=== PATIENT | female | born 1950 | race Caucasian/White ===

== ENCOUNTER 2017-11-20 06:20 | Day surgery (SDC) | payer OTHER ==
[2017-11-17 13:14] LABS: Absolute Lymphocytes (CBC) 1.3 K/uL (0.7-4.9); Absolute Monocytes 0.5 K/uL (0.1-1.3); Absolute Neutrophil 4.1 K/uL (1.8-8.0); Basophils % 0.6 % (0-1.3); Eosinophils % 3.3 % (0-4.4); Hematocrit 45.7 % (36.0-45.0); Lymphocytes % 20.9 % (15.3-44.8); MCH 31.4 pg (27.0-35.0); MCV 93.9 fL (80-100); MPV 9.4 fL (7.6-11.3); Monocytes % 8.7 % (3.3-12.3); RBC Red Blood Cell Count 4.87 M/uL (3.86-4.86)
[2017-11-17 13:21] LABS: BUN Blood Urea Nitrogen 12 mg/dL (6-20); Bicarbonate 28 mEq/L (21-31); Glucose Level 93 mg/dL (65-120); Potassium 4.1 mEq/L (3.6-5.0); Sodium Level 139 mEq/L (135-145)
[2017-11-20] MEDS ORDERED: SCOPOLAMINE HYDROBROMIDE PATCH TD ONE (06:44)
[2017-11-20] MEDS ORDERED: Ringers Lactate 1,000 ML IV ONE ×3 (06:44→19:54)
[2017-11-20] MEDS ORDERED: CEFAZOLIN/SWI 1gm 1 GM/10 ML SYR ONE (06:44)
[2017-11-20] MEDS ORDERED: ROCURONIUM 50 MG/5 ML VIAL IV ONE ×3 (06:44→11:16)
[2017-11-20] MEDS ORDERED: PROPOFOL 200 MG/20 ML VIAL IV ONE (06:44)
[2017-11-20] MEDS ORDERED: DEXAMETHASONE 10 MG/ML VIAL ONE (06:45)
[2017-11-20] MEDS ORDERED: LIDOCAINE 2% MPF 5 ML VIAL ONE (06:45)
[2017-11-20] MEDS ORDERED: FENTANYL CITR 250 MCG/5 ML ONE (06:46)
[2017-11-20] MEDS ORDERED: ONDANSETRON 4 MG/2 ML VIAL ONE ×2 (06:46→07:50)
[2017-11-20] MEDS ORDERED: MIDAZOLAM HCL 2 MG/2 ML INJ ONE (06:46)
[2017-11-20] MEDS ORDERED: VASOPRESSIN 20 UNIT/ML VIAL ONE (06:53)
[2017-11-20] MEDS ORDERED: NA CHLORIDE 0.9% 0 ML IV ONE (06:53)
[2017-11-20] MEDS: CEFAZOLIN/SWI 1gm 1 GM/10 ML SYR ONE ×2 (07:16→08:33)
[2017-11-20] MEDS ORDERED: EPHEDRINE SULF 50 MG/5 ML SYR ONE (07:43)
[2017-11-20] MEDS ORDERED: GLYCOPYRROLATE 0.2 MG/ML SYR ONE (07:49)
[2017-11-20] MEDS ORDERED: NEOSTIGMINE 1 MG/ML -5 ML SYRINGE ONE (07:50)
[2017-11-20] MEDS ORDERED: MORPHINE 10 MG/ML VIAL ONE (07:57)
[2017-11-20] MEDS ORDERED: CEFAZOLIN SODIUM 1 GM/VIAL ONE (09:56)
[2017-11-20] MEDS ORDERED: FENTANYL CITR 100 MCG/2 ML ONE ×2 (10:11→11:11)
[2017-11-20] MEDS: Ringers Lactate 1,000 ML IV ONE ×2 (11:00→11:02)
[2017-11-20] MEDS ORDERED: NA CHLORIDE 0.9% 50 ML ONE (11:09)
[2017-11-20] MEDS: VASOPRESSIN 20 UNIT/ML VIAL ONE ×2 (11:17→11:46)
[2017-11-20] MEDS ORDERED: KETOROLAC 30 MG/ML INJ ONE (11:46)
[2017-11-20] MEDS ORDERED: PROMETHAZINE 25 MG TABLET PO PRN (13:27)
[2017-11-20] MEDS ORDERED: HYDROMORPHONE HCL 1 MG/ML INJ IV PRN (13:27)
[2017-11-20] MEDS ORDERED: ONDANSETRON 4 MG/2 ML VIAL IV PRN (13:27)
[2017-11-20 13:57] VITALS: O2SAT 94
[2017-11-20] MEDS ORDERED: MORPHINE 4 MG/ML SYR IV PRN (14:47)
[2017-11-20 15:07] VITALS: BMI 25.0
[2017-11-20] MEDS: HYDROCODONE/APAP 5/325 MG TAB PO PRN ×2 (17:18→22:57)
[2017-11-20] MEDS: Ringers Lactate 1,000 ML IV SCH (22:10)
[2017-11-20] MEDS ORDERED: HYDROCODONE/APAP 5/325 MG TAB ONE (22:54)
[2017-11-21] MEDS ORDERED: HYDROCODONE/APAP 5/325 MG TAB ONE ×2 (05:04→12:43)
[2017-11-21] MEDS: HYDROCODONE/APAP 5/325 MG TAB PO PRN ×2 (05:09→13:00)
[2017-11-21] MEDS ORDERED: Ringers Lactate 1,000 ML IV ONE (05:15)
[2017-11-21] MEDS: Ringers Lactate 1,000 ML IV SCH (05:17)
[2017-11-21 06:20] LABS: Absolute Lymphocytes (CBC) 1.6 K/uL (0.7-4.9); Basophils % 0.3 % (0-1.3); Eosinophils % 0.5 % (0-4.4); Hematocrit 40.4 % (36.0-45.0); Lymphocytes % 15.3 % (15.3-44.8); MCH 31.8 pg (27.0-35.0); MCV 94.2 fL (80-100); MPV 8.9 fL (7.6-11.3); Monocytes % 8.9 % (3.3-12.3)
--- NOTE | 2017-11-21 08:43 | OP ---
Date of Procedure: 11/20/2017 Surgeon: Meredith Chirinos MD Preoperative Diagnoses: Stage III anterior wall prolapse and stage II posterior wall prolapse, occul t stress urinary incontinence, and urethrocele. Postoperative Diagnoses: Stage III anterior wall prolapse and stage II posterior wall prolapse, occu lt stress urinary incontinence, and urethrocele. Procedures Performed: 1.Laparoscopic sacral colpopexy. 2.Rectocele repair and perineorrhaphy. 3.Midurethral sling TVT-O and cystoscopy. Cystocele repair was performed along with the sacral colp opexy laparoscopically. The patient also had urethrocele, so urethrocele repair was done. 4.Extensive lysis of bowel adhesions. Anesthesia: General. Estimated Blood Loss: 100. Specimens: None. Complications: None. Drains: Hughes catheter and vaginal packing. Findings: Extensive bowel adhesions of the sigmoid colon and cecum to the entire pelvic area and the se had to be taken down. Her POP-Q was as follows; 0, +2, -2, 4-5 cm thin, 7 cm for vaginal length. AP was 0, BP was +1, and point D nonapplicable. The patient also had paravaginal defects, however, the anterior wall bulge and the apex in the posterior wall were main important defects. Description Of Procedure: After informed consent was verified, a gram of Ancef was given. She was t aken back to the OR, placed in a supine fashion on the operating table. After general anesthesia was given, she was placed in dorsal lithotomy position. Pelvic exam was performed and POP-Q as above. Entire abdomen, vulva, vagina, and perineum were prepped and draped in a sterile fashion both for the abdominal and vaginal setup. Hughes was placed to drain the bladder. Cysto tubing was used to connect the bladder to retrograde fi ll, but this was left to drain on the floor first. A colpo assist device was placed into the vagina for vaginal retraction and this area was draped. A 1 cm infraumbilical incision was made with a scalpel. The fascia was incised, tagged with 0 Vicryl sutures. Peritoneal cavity was entered. S retractors were placed. Alondra trocar was introduced. The tags were tacked down to the Alondra. Site of entry was checked and unremarkable. There were ome ntal adhesions to the right upper quadrant. The liver appeared to be unremarkable other than age-rel ated changes. The patient was placed in Trendelenburg position. A 5 mm left lower quadrant, 10 mm s uprapubic, and 5 mm right lower quadrant ports were placed under direct vision. On visualization of the pelvic cavity, the patient in Trendelenburg, there were significant adhesions of the large bowel to the left lateral wall and the cul-de-sac, both sides, right lateral wall and right lower quadrant where the cecum was. In the first 30 minutes of the procedure, the adhesions were taken down with sharp dissection with sc issors. Systematically with push-spread technique and traction-countertraction, these were taken casey n all the way dissecting from the left adnexal area all the way down to the pelvis. Then, in a simil ar fashion, they were taken down from the right posterior lateral wall in the cul-de-sac in a sharp f ashion as well as with cold scissors. Then, I went down to the right . Here once the all this was freed up, the colon was freed up. However, the cecum was falling into the field where the s acral promontory was, so I had to take down the cecal adhesions. The cecal adhesions were also taken down in a systematic fashion by creating windows and then taken d own sharply. After all these were done, the cecum was retracted superiorly. The base of the small i ntestinal mesentery was turned superiorly and tucked down to the omentum for good retraction. The pa tient was placed in a steep Trendelenburg . Promontory was identified. Then anterior and posterior vaginal taylor were examined closely. The bladder was identified. I started with incision at the level of the bladder proximal to it and the vaginal cuff opening in the peritoneum. Once this was done, the entire vesicovaginal space access was opened up by the scissors. The incis ion was performed towards the right end of the and to the left end. Once the transverse i ncision was made, then went down to dissect the bladder superiorly. There was a small area that was bleeding, which was likely the detrusor muscle. This was cauterized with the help of the bipolar tip . Then, the bladder was held retracting superiorly and the entire bladder was dissected away from th e anterior vaginal wall. Once the dissection was performed all the way down to about 4 cm from the l evel of the cuff, calculation for total 7 cm cuff. If the trigone took about a centimeter and a half and 3 cm for the urethra, then we would be left with 3.5 cm vaginal wall. So, once this was achieved anteriorly with push-spread technique, all the bladder adhesions were taken down and the anterior vaginal wall was exposed. Then, went down posteriorly. The large part of the peritoneum w as left on the posterior cuff and at the reflection of the rectum, the posterior vaginal wall retract ion was done. Then, this space was opened up transversely by opening the peritoneum and dissecting t he rectum down here in the space, vaginal wall, but cut right on the fat so that there was no bleeding. Once this was done laterally on both sides, the dissection was carried to about 2 cm c ephalad to the perineal body. Once I came down here, then I was able to open the incision widely as well as from [id number] to create enough space to lay down the mesh. The Y mesh was then taken, 9.5 cm were trimmed posteriorly. Then, 9 cm were trimmed and 9.5 cm were trimmed posteriorly and the Y mesh was sutured in such a way that the posterior flap was held by itse lf. Anterior flap was folded on the sacral suspension flap and stitched with a 2-0 PDS with the nora e knot. Then, a V-Loc suture was placed in the middle of the posterior arm of the graft distally. O nce this was passed through here, then I came on to bring the suture through the suprapubic port and this was placed in the center of the distal part of the posterior vaginal wall with the distal most p art of the dissection. Once 2 bites were taken into the vaginal wall in a pretty thick fashion, then the graft was pulled through the suprapubic port with the posterior arm coming in first. Then, the entire mesh was pulled in and was laid flat going from the sacrum all the way down to the distal post erior vaginal wall and the suture was pulled tightly and snugly and the tails cut. Then, after this was done, I placed two 2-0 PDS sutures on each side laterally in the distal part to attach the graft to the rectovaginal septum. One bite was taken with Prolene on each side deep enough, but not too de ep to expose into the vaginal mucosa. The sutures were then tied down with 8 knot and tails cut very snug. Then, came on to tension the sacral part of the mesh. Prior to this was being done, I opened up the sacral promontory by holding tension on the peritoneum above it after identifying the bifurcation in the ureter. Incision was made with a harmonic scalpel and this incision was carried down laterally towards the uterosacral and stayed medial to the uterosa cral to open into peritoneum and connected with a transverse posterior incision. Once this was done, the fat was also dissected to create enough space to lay down the graft staying away from the presac ral nerves. The middle sacral veins were very minimal and did not seem to be concerning, so they did not need to be cauterized. Once the sacrum was identified, both tips of the retracting instruments were placed o n either sides without injuring the vessels . Then with the help of the Protac, I was able to secure 3 bites onto the sacral promontory, then flipped the mesh back on itself and 3 more tacks were placed. After this was securely tacked, the excess of mesh was trimmed off. Anterior vaginal wall was then sutured with the graft. The graft was flipped after cutting the retai francoise suture. The V-Loc suture was placed in the midline distal vaginal wall. Two 2 bites were taken through the graft and through the vaginal mucosa to hold it nicely down. Then, 2-0 Prolene sutures were placed on each side to go through the precervical fascia. Once the sutures were securely placed to tack down the mesh, then 2 more V-Locs were placed 1 on each side and not close to the Y part of the mesh, but laterally to securely lay down the graft and prevent it from rolling. There was at teena st a centimeter space between the apex of the vaginal wall and the Y mesh. The Y mesh was then retro peritonealized starting with the V-Loc suture at the top near the sacral promontory. The knot of the V-Loc was securely placed inside the peritoneum, so it was retroperitonealized. Then, in a continuo us running fashion the cephalad longer incision was closed and the transverse right half of the incis ion was closed along with the same suture and a new suture was taken and this was used to close the r est of the left half of the transverse incision. Once all these were brought together, the entire me sh was retroperitonealized without too much bunching up. The trocars were all removed after cutting the suture that was placed to hold the epiploica of the co brian using the Gigi-Emory needle that was retrieved. The sutures were retrieved before the start of the case. The same suture was released, the 2-0 PDS and there was no bleeding at the site. The suction irrigation was performed. Pictures were taken. No evidence of any injury to the ureter or t he vessels of the bowel. All trocars were removed under direct vision. A 0 PDS was used to close the fascia at the umbilicus and 0 Vicryl at the suprapubic incision. All incisions were closed with the help of yadi. On examination, there was an excellent lift of the vaginal apex to at least -8. An anterior wall was also well reduced. There was a small urethrocele. However, there were small paravaginal defects; h owever, these did not appear to need any repair. This exam was performed and satisfaction was ensure d even prior to closing the laparoscopic ports. The distal rectocele and perineal body had to be reconstructed, so this Procedure was done next. Two Allis clamps were placed on either sides of the vestibule and injection with the vasopressin in t he perineum and in the posterior vaginal wall and to the level below the distal suture of the graft. Then, a triangular skin incision was made on the perineum. Then, midline vertical incision was made , extended 2 cm of the distal vaginal wall. Then, the rectocele was dissected, vaginal mucosa was pi cked up, and the distal defect was very mild, mostly with the perineocele. So, the vaginal mucosa wa s trimmed. This was closed with the help of 2-0 Vicryl in a continuous running fashion. Once I came down to the perineal body, this was very weak, so I went on to reconstruct the perineal body by chana ging together the transverse perinei. Rectovaginal exam was performed. Three interrupted 2-0 Vicryl sutures were placed to bring this back and reconstruct it. Once this was done, then the 2-0 Vicryl was continued and the vaginal mucosa was closed inside the hymen. Then, a 3-0 Vicryl suture was take n and subcutaneous closure was done on the perineum and subcuticular closure and the suture tied insi de the hymenal ring. Rectal exam was performed. No evidence of any trauma or foreign body in the re ctum. Mid urethral area was visualized. Dilute vasopressin was injected by placing Allis on the lateral wa ll on the lateral aspect of the mid urethra. With a 15-blade, the lateral incisions were made to red uce the urethrocele and flaps were created on each side that were thick. Then, I went down to do the dissection for the sling. There was some difficulty getting into the obturator space. Once this wa s entered, the tracks were created on both sides. The wing guides were placed. The spikes were pass ed in the usual fashion. The exit points were somewhat inferior to the marked point. However, this was satisfactory placement of both arms. So, the sling was left in place. I dissected the urethroce le proximally as well to the level of the bladder neck. There was difficulty getting any good fascia here. The lateral sutures were taken to bring the proximal part of the urethrocele closed with the help of interrupted 3-0 Vicryl sutures. Then, the sling was laid on top of it. Then, the vaginal ep ithelium was closed with the help of a continuous running 3-0 Vicryl suture. The skin incisions were closed with the help of Dermabond. The Hughes was removed. Cystoscopy and urethroscopy were perform ed. No evidence of any trauma or foreign body here. Both ureteric orifices were patent and there we re strong jets of urine probably from both ureteric orifices. No evidence of any tumors. The scope was removed. On ureteroscopy, no evidence of any trauma or foreign body. The bladder was drained. Hughes was replaced. Vaginal packing was placed. The patient was recovered from anesthesia. Instrum ent, needle, and sponge counts x3 were correct at the end of the case. The patient tolerated the pro cedure well. Her EBL was as dictated above. Urine output was adequate. Dr. was preceptor and was present in the room for the entire case. REZA Voice ID: [id number] Report ID: [id number]
[2017-11-21] MEDS ORDERED: DOCUSATE NA 100 MG CAP PO SCH (09:00)
[2017-11-21 12:13] VITALS: BP 138/52; TEMP 98.5
== END 2017-11-21 13:15 | disposition home or self-care (01) ==
LOC: OR 06:20 → 2ND-WC 13:45 → UNDOADMOB 14:00 → 2ND-WC 14:00 → OR 11-21 13:15
PROVIDERS: ATTEND Obstetrics & Gynecology
PROC: 0WQNXZZ Repair Female Perineum, External Approach (ICD-10-PCS; 2017-11-20)
PROC: 0USG4ZZ Reposition Vagina, Percutaneous Endoscopic Approach (ICD-10-PCS; 2017-11-20)
PROC: 0TSD0ZZ Reposition Urethra, Open Approach (ICD-10-PCS; 2017-11-20)
PROC: 0JUC0JZ Supplement of Pelvic Region Subcutaneous Tissue and Fascia with Synthetic Substitute, Open Approach (ICD-10-PCS; 2017-11-20)
PROC: 0JQC0ZZ Repair Pelvic Region Subcutaneous Tissue and Fascia, Open Approach (ICD-10-PCS; principal; 2017-11-20 07:30)
DX: N99.3 Prolapse of vaginal vault after hysterectomy (principal); N39.3 Stress incontinence (female) (male); N73.6 Female pelvic peritoneal adhesions (postinfective); I10 Essential (primary) hypertension; E78.5 Hyperlipidemia, unspecified; M85.80 Other specified disorders of bone density and structure, unspecified site; Z80.3 Family history of malignant neoplasm of breast
CPT/HCPCS: 36415; 80048; 85025; 86850; 86900; 86901; J0690; J1100; J1170; J2250; J2405; J2710; J3010

== ENCOUNTER 2017-12-15 10:00 | Day surgery (SDC) | payer OTHER ==
--- NOTE | 2017-12-11 11:00 | EKG ---
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
[2017-12-11 11:19] LABS: Absolute Lymphocytes (CBC) 1.4 K/uL (0.7-4.9); Absolute Monocytes 0.6 K/uL (0.1-1.3); Absolute Neutrophil 3.3 K/uL (1.8-8.0); Basophils % 0.8 % (0-1.3); Eosinophils % 5.7 % (0-4.4); Hematocrit 42.5 % (36.0-45.0); Lymphocytes % 24.2 % (15.3-44.8); MCH 31.7 pg (27.0-35.0); MCV 96.4 fL (80-100); Monocytes % 10.6 % (3.3-12.3); RBC Red Blood Cell Count 4.41 M/uL (3.86-4.86)
[2017-12-15] MEDS ORDERED: Ringers Lactate 1,000 ML IV ONE (10:23)
[2017-12-15] MEDS: CEFAZOLIN/SWI 1gm 1 GM/10 ML SYR ONE ×2 (10:50→11:02)
[2017-12-15] MEDS ORDERED: MIDAZOLAM HCL 2 MG/2 ML INJ ONE (10:59)
[2017-12-15] MEDS ORDERED: PROPOFOL 200 MG/20 ML VIAL IV ONE (11:06)
[2017-12-15] MEDS ORDERED: FENTANYL CITR 100 MCG/2 ML ONE (11:07)
[2017-12-15] MEDS ORDERED: LIDOCAINE 2% MPF 5 ML VIAL ONE (11:07)
[2017-12-15] MEDS ORDERED: ONDANSETRON 4 MG/2 ML VIAL ONE (11:12)
--- NOTE | 2017-12-15 11:42 | P.BOP ---
Preoperative diagnosis: hyperpimentated ulcerated arm subq masses Postoperative diagnosis: inflammed suq masses Primary procedure: 1. Excisional of medial arm hyperpigm. infected ulcerated subq mass 2x2 cm Secondary procedure: 2. Excisional of lateral arm hyperpigm infected ulcerated subq mass 2x2cm Estimated blood loss: <5cc Specimen: masses Findings: inflammed infected subq cyst x 2 Anesthesia: General Complications: None Drain(s): Other Transferred to: Recovery Room Condition: Good
[2017-12-15 12:41] VITALS: BP 138/84; TEMP 97.8; O2SAT 99
[2017-12-15] MEDS ORDERED: CODEINE 30MG/APAP 300MG TAB ONE (12:49)
--- NOTE | 2017-12-15 22:05 | OP ---
Date of Procedure: 12/15/2017 Surgeon: Anastacio Burns MD Preoperative Diagnosis: Hyperpigmented ulcerated arm subcutaneous masses. Postoperative Diagnoses: Hyperpigmented ulcerated arm subcutaneous masses plus inflamed subcutaneous masses. Procedures: 1.Excisional biopsy of medial arm hyperpigmented infected ulcerated subcutaneous mass 2 x 2 cm with frozen section. 2.Excisional biopsy of lateral arm hyperpigmented infected ulcerated subcutaneous mass 2 x 2 cm. Estimated Blood Loss: Less than 5 cc. Specimen: Masses. Finding: Inflamed and infected subcutaneous masses probably cyst. Anesthesia: General plus local. Indications: This is the case of a 67-year-old patient, who comes to us with 2 masses in the left ar m increasing in size, getting it red with ulceration. She does not remember having that before. She tried antibiotics, did not work. She is getting worse and is going deep, and with anesthesia she wa nts that excised. Possibility of skin cancer is there, so she wants that excised. The benefits, alt ernatives, and risks of excision were fully explained, which include but are not limited to infection , bleeding, damage to adjacent structures, anesthesia complication, recurrence, [place], and even . She also understands this may not relieve any symptoms. She might need more than one surgical interv ention. She also understood and signed a consent. The area of concern was marked by me and the griselda ent in the holding room. Description Of Procedure: The patient was brought to the operating room and placed in the supine pos ition. Anesthesia was given without complication. Left arm was prepped and draped in a sterile fash ion. A time-out was called. We proceeded to the medial side first which is the one that just giving her most of the trouble and that is why we are doing the frozen section. So, we did a wedge excisio n in the skin all the way down to fat full thickness of the skin all the way down to fat. Muscle is not involved. The lesion was sent to the pathologist, who confirmed this to be a mass subcutaneous. There is a what looked like is an infected cyst. Area was profusely irrigated. Hemostasis was obta ined. The patient wants this close if possible. 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 In the meantime, we will do so and will watch her for the next few days. So, we close the area with subcutaneous fashion and 3-0 chromic and then after that the skin with a 3-0 nylo n interrupted multiple times. We remove also the lateral side mass as per patient request with once again using same technique, which is sharp incision of the skin in a wedge fashion. The mass was rem pascale all the way down to fatty tissue. The area was irrigated. Hemostasis was obtained. Then, the area was closed with 3-0 chromic in the subcutaneous tissue and 3-0 nylon on the skin multiple times. The patient tolerated each procedure well. Irrigation was done before closure also hemostasis. The patient was sent to recovery in stable condition. Disposition: Home. Activity: As tolerated. No heavy lifting. Followup: She will follow up in my office in 1 week. Call for appointment on [phone]. The patient has previous antibiotics Bactrim, but did not work for her, so at this time, we are going to go to [facility] and then also we are going to use Tylenol No. 3 for pain and Bactroban for local topical fawn lication. She understood. MIREYA/GILBERTO Voice ID: [id number] Report ID: [id number]
== END 2017-12-15 13:10 | disposition home or self-care (01) ==
LOC: OR 10:00
PROVIDERS: ATTEND Surgery
PROC: 0JBH0ZZ Excision of Left Lower Arm Subcutaneous Tissue and Fascia, Open Approach (ICD-10-PCS; 2017-12-15)
PROC: 0JBH0ZZ Excision of Left Lower Arm Subcutaneous Tissue and Fascia, Open Approach (ICD-10-PCS; principal; 2017-12-15 11:00)
DX: R22.32 Localized swelling, mass and lump, left upper limb (principal); L72.0 Epidermal cyst; Z85.828 Personal history of other malignant neoplasm of skin; Z91.018 Allergy to other foods; Z80.8 Family history of malignant neoplasm of other organs or systems
CPT/HCPCS: 36415; 71046; 80048; 85025; 88304; 88305; 88312; 88331; 88332; 93005; J0690; J2250; J2405; J3010

== ENCOUNTER 2019-12-27 10:24 | Emergency (ER) | payer OTHER ==
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
--- NOTE | 2019-12-27 12:17 | RAD REPORT ---
EXAM DESCRIPTION: Ribs Right - 12/27/2019 11:26 am CLINICAL HISTORY: PAIN COMPARISON: Chest Pa And Lat (2 Views) dated 12/27/2019 FINDINGS: Nondisplaced lateral sixth and seventh rib fractures are noted. There is questionable frac ture of the eighth rib as well. No pathologic component. No aggressive rib lesion. There is no pneumothorax. Lung base atelectasis present. Patient may have m inimal pleural fluid. IMPRESSION: Nondisplaced fractures of the lateral right sixth and seventh ribs with probable fractur e of the eighth rib. Lung base atelectasis with no pneumothorax.
--- NOTE | 2019-12-27 12:56 | ER ---
Nurse's Notes [facility] Name: Monica Mclean Age: 69 yrs Sex: Female : 1950 Arrival Date: 12/27/2019 Time: 10:27 Bed 17 Private MD: Justine Luna Diagnosis: Multiple fractures of ribs, right side Presentation: 12/26 10:38 Chief complaint: Patient states: L sided rib pain that began yesterday after attempting ss to jump over an electric fence. Coronavirus screen: Proceed with normal triage. Patient denies a cough. Patient denies shortness of breath or difficulty breathing. Patient denies measured and/or subjective temperature greater than 100.4F prior to today's visit. Patient denies travel on a cruise ship or to a country the [facility] currently lists as an affected area. Patient denies contact with known and/or suspected case of COVID-19. Ebola Screen: Patient denies exposure to infectious person. Patient denies travel to an Ebola-affected area in the 21 days before illness onset. Initial Sepsis Screen: Does the patient meet any 2 criteria? No. Patient's initial sepsis screen is negative. Does the patient have a suspected source of infection? No. Patient's initial sepsis screen is negative. Risk Assessment: Do you want to hurt yourself or someone else? Patient reports no desire to harm self or others. Onset of symptoms was December 26, 2019. 10:38 Method Of Arrival: Ambulatory ss 10:38 Acuity: GEREMIAS 4 ss Historical: - Allergies: 12:23 No Known Allergies; - Family history:: not pertinent. - Hospitalizations: : No recent hospitalization is reported. Screenin:20 Abuse screen: Denies threats or abuse. Nutritional screening: No deficits noted. Tuberculosis screening: No symptoms or risk factors identified. Fall Risk None identified. Assessment: 10:56 Reassessment: Pt to radiology via . 11:00 General: Appears uncomfortable, Behavior is calm, cooperative. Pain: Complains of pain ah in right ribs Pain currently is 2 out of 10 on a pain scale. at worst was 10 out of 10 on a pain scale. Quality of pain is described as aching. Neuro: Level of Consciousness is awake, alert, Oriented to person, place, time, situation. Cardiovascular: Denies chest pain, Heart tones S1 S2 present. Respiratory: Airway is patent Respiratory effort is even, unlabored, Respiratory pattern is regular, symmetrical, Denies pain with respiration. GI: No signs and/or symptoms were reported involving the gastrointestinal system. GI: Patient currently denies bloody stool. : No signs and/or symptoms were reported regarding the genitourinary system. EENT: No signs and/or symptoms were reported regarding the EENT system. Derm: No signs and/or symptoms reported regarding the dermatologic system. Musculoskeletal: No signs and/or symptoms reported regarding the musculoskeletal system. 12:00 Reassessment: Patient and/or family updated on plan of care and expected duration. Pain ah level reassessed. Patient is alert, oriented x 3, equal unlabored respirations, skin warm/dry/pink. awaiting results from radiology. Vital Signs: 10:52 BP 137 / 78; Pulse 95; Resp 20; Temp 98.2(TE); Pulse Ox 96% ; lt1 13:16 BP 128 / 77; Pulse 88; Resp 16; Pulse Ox 98% ; sv ED Course: 10:27 Patient arrived in ED. mr 10:28 Justine Luna is Private Physician. mr 10:39 Phong Bravo MD is Attending Physician. rn 10:53 Darlyn Sadler RN is Primary Nurse. ah 11:13 XRAY Chest Pa And Lat (2 Views) In Process Unspecified. EDMS 11:13 XRAY Ribs RIGHT In Process Unspecified. EDMS 11:20 Triage completed. ss 12:20 No provider procedures requiring assistance completed. ah 13:00 Patient has correct armband on for positive identification. Placed in gown. Bed in low ah position. Call light in reach. 13:10 Incentive spirometer education provided by an Emergency Department nursing staff member.sv 13:16 Patient did not have IV access during this emergency room visit. sv 21:45 INCENTIVE SPIROMETRY Sent. ah Administered Medications: No medications were administered Outcome: 12:54 Discharge ordered by MD. rn 13:16 Discharged to home via wheelchair, with family. sv 13:16 Condition: stable 13:16 Discharge instructions given to patient, Instructed on discharge instructions, follow up and referral plans. medication usage, IS teaching Demonstrated understanding of instructions, follow-up care, medications, Prescriptions given X 1. 13:19 Patient left the ED. sv Signatures: Dispatcher [employer] EDMS Haile Tabitha, RN RN cecile Lugo, Martha mr Phong Bravo MD MD rn Smirch, Shelby, Beth Kathleen RN [facility] Darlyn Sadler RN RN
--- NOTE | 2019-12-27 12:56 | EDPHYS ---
Physician Documentation [facility] Name: Monica Mclean Age: 69 yrs Sex: Female : 1950 Arrival Date: 12/27/2019 Time: 10:27 Bed 17 Private MD: Justine Luna ED Physician Phong Bravo HPI: 12/26 10:52 This 69 yrs old Female presents to ER via Unassigned with complaints of Rib rn Pain. 10:52 The patient or guardian reports chest pain that is located primarily in the anterior rn chest wall. Onset: The symptoms/episode began/occurred 2 day(s) ago. The pain does not radiate. Associated signs and symptoms: Pertinent negatives: diaphoresis, palpitations, shortness of breath, syncope. The chest pain is described as sharp, stabbing. Duration: The patient or guardian reports multiple episodes, that are intermittent. Modifying factors: The symptoms are alleviated by remaining still, the symptoms are aggravated by activity, cough, deep breath, palpation of area. Severity of pain: At its worst the pain was moderate in the emergency department the pain is unchanged. The patient has not experienced similar symptoms in the past. Reports right rib pain, states accidentally grabbed electrified fence/barrier, was thrown back and landed on right chest wall, concerned for possible rib fracture. Reports has wrapped her chest with MAHSA wrap that helps, no fever, no sob, reports main problem is pain. No other injuries. No syncope or LOC at time of event. . Historical: - Allergies: 12:23 No Known Allergies; ah - Family history:: not pertinent. - Hospitalizations: : No recent hospitalization is reported. ROS: 10:52 Constitutional: Negative for fever, chills, and weight loss, Neck: Negative for injury, rn pain, and swelling, Cardiovascular: Negative for palpitations, and edema, Respiratory: Negative for shortness of breath, wheezing, + pleuritic right sided chest pain Abdomen/GI: Negative for abdominal pain, nausea, vomiting, diarrhea, and constipation, MS/Extremity: Negative for injury and deformity, Skin: Negative for injury, rash, and discoloration, Neuro: Negative for headache, weakness, numbness, tingling, and seizure. Exam: 10:52 Constitutional: This is a well developed, well nourished patient who is awake, alert, rn seems uncomfortable, splinting right chest wall with soft device, ambulatory to room without assistance. Head/Face: Normocephalic, atraumatic. Chest/axilla: + mild swelling and tenderness right anteriolateral chest wall along ribs, no crepitus Cardiovascular: Regular rate and rhythm. No pulse deficits. Respiratory: Diminished breath sounds right lung base, + splinting, no wheezing Abdomen/GI: soft, non-tender MS/ Extremity: Pulses equal, no cyanosis. Neuro: Awake and alert, GCS 15. Normal gait. Vital Signs: 10:52 BP 137 / 78; Pulse 95; Resp 20; Temp 98.2(TE); Pulse Ox 96% ; lt1 13:16 BP 128 / 77; Pulse 88; Resp 16; Pulse Ox 98% ; sv MDM: 10:39 Patient medically screened. rn 12:03 ED course: Pt declines pain medication. rn 12:54 Differential diagnosis: Blunt Chest Trauma Chest Wall Contusion Chest Wall Injury rn Pneumothorax Pulmonary Contusion Rib Fracture. Data reviewed: vital signs, nurses notes, radiologic studies, plain films, and as a result, I will discharge patient. Test interpretation: by ED physician or midlevel provider: plain radiologic studies, CXR with multiple rib fractures, right side, no pneumothorax. Counseling: I had a detailed discussion with the patient and/or guardian regarding: the historical points, exam findings, and any diagnostic results supporting the discharge/admit diagnosis, radiology results, the need for outpatient follow up, to return to the emergency department if symptoms worsen or persist or if there are any questions or concerns that arise at home. 12:57 ED course: No active prescriptions on pmpaware, will dc home with tramadol as she does rn not want anything stronger.. 12/26 10:47 Order name: XRAY Chest Pa And Lat (2 Views) rn 12/26 10:47 Order name: XRAY Ribs RIGHT rn 12/26 10:47 Order name: INCENTIVE SPIROMETRY rn Administered Medications: No medications were administered Disposition: 12/27/19 12:54 Discharged to Home. Impression: Multiple fractures of ribs, right side. - Condition is Stable. - Discharge Instructions: Rib Fracture, Incentive Spirometer. - Prescriptions for Tramadol 50 mg Oral Tablet - take 1 tablet by ORAL route every 8 hours as needed; 20 tablet. - Medication Reconciliation Form, Thank You Letter, Antibiotic Education, Prescription Opioid Use form. - Follow up: Private Physician; When: As needed; Reason: Recheck today's complaints, Re-evaluation by your physician. - Problem is new. - Symptoms have improved. Signatures: Dispatcher [employer] Tabitha Sahu RN RN sv Nieto, Roman, MD MD rn Harris, BILL Santizo RN Corrections: (The following items were deleted from the chart) 13:19 12:54 12/27/2019 12:54 Discharged to Home. Impression: Multiple fractures of ribs, sv right side. Condition is Stable. Forms are Medication Reconciliation Form, Thank You Letter, Antibiotic Education, Prescription Opioid Use. Follow up: Private Physician; When: As needed; Reason: Recheck today's complaints, Re-evaluation by your physician. Problem is new. Symptoms have improved. rn
[2019-12-27 13:24] VITALS: TEMP 98.2
[2019-12-27 13:25] VITALS: BP 128/77; O2SAT 98
== END 2019-12-27 13:19 | disposition home or self-care (01) ==
LOC: ER 10:24
DX: S22.41XA Multiple fractures of ribs, right side, initial encounter for closed fracture (principal); W18.39XA Other fall on same level, initial encounter; Y93.39 Activity, other involving climbing, rappelling and jumping off; Y92.9 Unspecified place or not applicable
CPT/HCPCS: 71046; 99283

== ENCOUNTER 2023-11-12 06:50 | Day surgery (SDC) | payer OTHER ==
[2023-11-11 14:35] LABS: Absolute Eosinophils 0.2 K/uL (0-0.5); Absolute Lymphocytes (CBC) 1.3 K/uL (0.7-4.9); Absolute Monocytes 0.5 K/uL (0.1-1.3); Absolute Neutrophil 3.4 K/uL (1.8-8.0); Basophils % 0.9 % (0-1.3); Hemoglobin 14.4 g/dL (12.0-15.0); Lymphocytes % 24.4 % (15.3-44.8); MCH 32.2 pg (27.0-35.0); MCHC 33.5 g/dL (32.0-36.0); MCV 96.1 fL (80-100); MPV 8.6 fL (7.6-11.3); Monocytes % 9.7 % (3.3-12.3); Platelets 266 thou/uL (152-406); RBC Red Blood Cell Count 4.47 M/uL (3.86-4.86); Red Cell Distribution Width 12.6 % (12.1-15.2)
[2023-11-11 14:47] LABS: Anion Gap 8.2 mEq/L (5.0-15.0); Potassium 3.2 mEq/L (3.5-5.1)
[2023-11-12] MEDS: Ringers Lactate 1,000 ML IV ONE (07:00)
[2023-11-12] MEDS: GLYCOPYRROLATE 0.2 MG/ML SYR ONE (07:15)
[2023-11-12] MEDS: LIDOCAINE 4% TOP SOLUTION ONE (07:18)
[2023-11-12] MEDS: Phenylephrine HCl 10 MG/ML 1 ML VIAL ONE (07:18)
[2023-11-12] MEDS ORDERED: LIDOCAINE 1% MPF 5 ML VIAL ONE (07:50)
[2023-11-12] MEDS ORDERED: propofoL 200 MG/20 ML VIAL IV ONE (07:50)
[2023-11-12] MEDS: LIDOCAINE 1% MPF 30 ML VIAL ONE (08:15)
[2023-11-12 09:48] VITALS: BP 123/70; TEMP 97.7; O2SAT 95
--- NOTE | 2023-11-12 12:14 | P.OP ---
Date of Service: 11/12/23 (Diagnostic bronchoscopy) Findings and Operative Technique Patient is 73 years of age was admitted for the bronchoscopy for suspicion of a foreign body inhalation apparently patient was chewing a gum and may have inhaled it into her lungs prior CT scan chest x-ray was all negative she still continues to complain of some left-sided chest discomfort there is a recent history of upper respiratory tract infection Skippy was done to rule out the possibility of inhaled foreign body Narrative report after obtaining informed consent from the patient she was premedicated by anesthesia Findings very difficult bronchoscopy due to fairly narrow upper airways prominent turbinates vocal cords normal trachea normal she does have extensive mucus in her respiratory tract that was suctioned out no foreign body visible after careful inspection of all the segmental bronchi on the right and the left side she tolerated the procedure fairly well experienced any significant hypoxemia or arrhythmias no procedures were performed patient to be discharged to follow-up with me in 2 weeks may do another x-ray
--- NOTE | 2023-11-13 15:44 | EKG ---
Test Date: 2023-11-11 Test Time: 14:08:18 Cable Rigger: ISMA MEASUREMENT RESULTS: Intervals: Rate: 96 CO: 140 QRSD: 84 QT: 354 QTc: 447 Rumsey: P: 60 CO: 140 QRS: 39 T: 59 INTERPRETIVE STATEMENTS: Normal sinus rhythm Low voltage QRS Borderline ECG Compared to ECG 12/11/2017 10:45:37 Low QRS voltage now present Electronically Signed On 11-13-23 15:40:24 CDT by Cesar Johnson
== END 2023-11-12 09:16 | disposition home or self-care (01) ==
LOC: OR 06:50
PROVIDERS: ATTEND Internal Medicine Sleep Medicine
PROC: 0BJ08ZZ Inspection of Tracheobronchial Tree, Via Natural or Artificial Opening Endoscopic (ICD-10-PCS; principal; 2023-11-12 08:00)
DX: R07.89 Other chest pain (principal); R05.9 Cough, unspecified; I10 Essential (primary) hypertension
CPT/HCPCS: 31622; 93005; 85025; 80048; 36415; J2704; J2001 ×2; J2371; J7120